=== PATIENT | female | born 1960 | race Caucasian/White ===

== ENCOUNTER → 2016-10-22 | Outpatient (CLI) | payer OTHER ==
[~2016-10-22] MED LIST: CINNAMON500 MG; FISH OIL1000 MG PO; FLAX OIL1000 MG PO; GINKGO2; MULTIPLE VITAMI1 CAP PO; THE MEDICINE S200 M2 PO; ZOFRAN ODT4 MG PO
== END ==
LOC: MC.RAD 11:38
DX: Z12.31 Encounter for screening mammogram for malignant neoplasm of breast (principal)

== ENCOUNTER 2018-11-29 13:21 | Emergency (ER) | payer BC ==
[~2018-11-29] VITALS: Ht 172.7 cm; Wt 86.5 kg
[2018-11-29 13:59] LABS: BASO % 0.3 % (0.0-2.0); EOS % 0.3 % (0-4.0); GRAN % 76.4 % (42.2-75.2); HEMATOCRIT 44.6 % (37.0-47.0); HEMOGLOBIN 14.7 g/dl (12.5-16.0); LYMPH # 1.1 (1.2-3.4); LYMPH % 16.7 % (20.0-51.0); MEAN CELL VOLUME 94 fl (80.0-100.0); MEAN CORPUSCULAR HEMOGLOBIN 31 pg (27.0-31.0); MEAN CORPUSCULAR HGB CONC 33 g/dl (33.0-37.0); MEAN PLATELET VOLUME 9.8 fl (7.4-10.4); MONO # 0.4 (0.1-0.6); PLATELET COUNT 250 K/mm3 (130-400); RED BLOOD COUNT 4.74 M/mm3 (4.10-5.30); REDCELL DISTRIBUTION WIDTH-CV 12.9 % (11.5-14.5)
[2018-11-29 14:15] LABS: ALBUMIN 4.6 gm/dL (3.5-5.0); BILIRUBIN,TOTAL 0.4 mg/dL (0.0-1.0); CALCIUM 9.8 mg/dL (8.4-10.2); CREATININE, serum 0.78 (0.52-1.25); POTASSIUM 4.2 mmol/L (3.4-5.0); TOTAL PROTEIN 7.9 gm/dL (6.4-8.2)
[2018-11-29 14:49] LABS: C-REACTIVE PROTEIN 17.1 mg/dL (0.0-0.9)
[2018-11-29 14:55] LABS: ERYTHROCYTE SEDIMENTATION RATE 24 mm/hr (0-30)
[2018-11-29 15:22] LABS: COLLECTION METHOD CLEAN CATCH
[2018-11-29 15:30] LABS: MUCOUS Present /lpf; PH 5 (5-8); SQUAMOUS EPITHELIAL 0-2 /hpf; URINE APPEARANCE Clear; URINE BACTERIA None Seen /hpf; URINE BILIRUBIN Negative (NEGATIVE); URINE BLOOD 1+ (NEGATIVE); URINE COLOR Yellow; URINE GLUCOSE Negative (NEGATIVE); URINE KETONE Trace (NEGATIVE); URINE LEUKOCYTE ESTERASE Negative (NEGATIVE); URINE NITRATE Negative (NEGATIVE); URINE PROTEIN(semi-quant) Negative (NEGATIVE); URINE RBC 0-2 /hpf; URINE UROBILINOGEN Negative (NEGATIVE)
[2018-11-29] MEDS ORDERED: DOXYCYCLINE 10100 MG PO (16:22)
[2018-11-29 16:33] VITALS: BP 124/74; PULSE 87; TEMP 99
== END 2018-11-29 16:33 | disposition home or self-care (01) ==
LOC: COL.ER 13:21
PROVIDERS: Emergency Medicine; Family Medicine
DX: R42 Dizziness and giddiness (principal); R50.9 Fever, unspecified
CPT/HCPCS: J1885; J2405; J7030; Q9967

== ENCOUNTER → 2018-12-05 | Outpatient (CLI) | payer BC ==
[~2018-12-05] MED LIST changes: +DOXYCYCLINE 10100 MG PO
== END ==
LOC: MC.RAD 10:35
DX: Z12.31 Encounter for screening mammogram for malignant neoplasm of breast (principal)

== ENCOUNTER → 2020-04-09 | Outpatient (CLI) | payer BC | LOC: COL.RAD 10:52 | DX: R91.1 Solitary pulmonary nodule (principal) ==

== ENCOUNTER 2020-11-14 21:18 | Emergency (ER) | payer BC ==
[~2020-11-14] VITALS: Ht 172.7 cm; Wt 87.7 kg
[2020-11-14 21:29] VITALS: TEMP 98.9
[2020-11-14 23:04] VITALS: BP 138/64; PULSE 74
== END 2020-11-14 23:05 | disposition home or self-care (01) ==
LOC: COL.ER 21:18
DX: S52.501A Unspecified fracture of the lower end of right radius, initial encounter for closed fracture (principal); Z88.6 Allergy status to analgesic agent; W55.12XA Struck by horse, initial encounter
CPT/HCPCS: J1885; J3010

== ENCOUNTER 2021-12-14 06:56 | Day surgery (SDC) | payer BC ==
[~2021-12-14] VITALS: Ht 172.7 cm; Wt 84.8 kg
[2021-12-14] MEDS ORDERED: MULTI VITAMINS1 TAB PO (07:21)
[2021-12-14 07:35] VITALS: BP 148/92; PULSE 61; TEMP 97.5
[2021-12-14 12:30] VITALS: BP 116/68; PULSE 62; TEMP 97.1
[2021-12-14 12:45] VITALS: BP 126/79; PULSE 62
[2021-12-14 13:00] VITALS: BP 125/60; PULSE 57
[2021-12-14 13:15] VITALS: BP 119/78; PULSE 59
--- NOTE | 2021-12-14 15:35 | NUR ---
1230: Patient arrived back into [facility] from PACU. Patient is alert and oriented. Vital signs stable. Report received from YVETTE Xavier. Patient requesting water and applesauce Patient rating pain 3/10. Mom and at bedside. Call light left within reach. 1245: Patient vitally stable. Tolerating food and drink well. Patient states she would like to try PRN pain medications. PRN pain medication given per MAR. Patient began gagging and had emesis with water and pills. Zofran offered to patient. Patient refused states she feels better. 1300: Patient tolerating water and applesauce well. States pain is managable. Denies nausea. 1330: Patient up to restroom with assist from . Able to void successfully. Patient states she feels ready to go home. Meets discharge criteria. Patient got dressed with assistance from mom. 1340: Went through discharge instructions with patient and family member. IV removed without complications. Escorted to patient entrance via wheelchair. Patient got into personal vehicle unassisted and left in the care of her family.
== END 2021-12-14 13:50 | disposition home or self-care (01) ==
LOC: SDCO 06:56
DX: M75.101 Unspecified rotator cuff tear or rupture of right shoulder, not specified as traumatic (principal); M75.01 Adhesive capsulitis of right shoulder; M75.41 Impingement syndrome of right shoulder; S43.431A Superior glenoid labrum lesion of right shoulder, initial encounter; S46.211A Strain of muscle, fascia and tendon of other parts of biceps, right arm, initial encounter
CPT/HCPCS: A4566; A4619; C1713; J1100; J2250; J2704; J2795; J3010; J7120

== ENCOUNTER → 2023-09-12 | Outpatient (CLI) | payer BC ==
[~2023-09-12] MED LIST changes: +CLEOCIN HCL300 MG PO; +DOXYCYCLINE HY100 MG PO; +MULTI VITAMINS1 TAB PO
== END ==
LOC: MC.RAD 08:07
DX: Z12.31 Encounter for screening mammogram for malignant neoplasm of breast (principal)